=== PATIENT | female | born 1965 | race Caucasian/White ===

== ENCOUNTER 2017-07-06 15:18 | Observation (INO) ==
[2017-07-06] MEDS ORDERED: 0.9 % Sodium Chloride 1,000 ML IVC ONE (15:37)
[2017-07-06 16:05] LABS: VBG PH 7.43 pH Units (7.32-7.42)
[2017-07-06 16:05] LABS: Basophils % 0.6 %; Hemoglobin 13.8 g/dL (11.5-15.4); Immature Granulocytes % 0.2 % (0-4); Lymphocytes # 3.3 K/mcL (0.6-4.6); Lymphocytes % 50.1 %; Mean Corpuscular HGB Conc 33.7 g/dL (31.6-35.5); Mean Corpuscular Hemoglobin 29.4 pg (28.0-33.3); Mean Corpuscular Volume 87.4 fL (83.0-100.0); Monocytes # 0.7 K/mcL (0.0-1.3); Neutrophils # 2.6 K/mcL (1.6-8.9); Platelet Count 222 K/mcL (140-400); Red Blood Count 4.69 M/mcL (3.82-4.97); Red Cell Distribution Width 12.9 % (11.5-14.5); Segmented Neutrophils % 39.1 %
[2017-07-06 16:20] LABS: BUN/Creatinine Ratio 12 (6-26); Blood Urea Nitrogen 8 mg/dL (7-20); Calcium 10.7 mg/dL (8.6-10.8); Carbon Dioxide 31 mEq/L (19-29); Chloride 105 mEq/L (98-109); Creatine Kinase 31 Units/L (29-168); Glucose 87 mg/dL (70-99); Osmolality,Calculated 286 (280-300); Potassium 4.2 mEq/L (3.5-4.5); Sodium 139 mEq/L (136-145); eGFR For African Americans > 60 (> 60); eGFR For Non-African Americans > 60 (> 60)
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
[2017-07-06 17:15] LABS: Bilirubin,Urine Negative (Negative); Blood,Urine Negative (Negative); Clarity,Urine Clear (Clear); Color,Urine Dark Yellow (Yellow); Glucose,Urine (UA) Normal (Normal); Ketones,Urine Negative (Negative); Leukocyte Esterase,Urine Negative (Negative); Nitrite,Urine Negative (Negative); Protein,Urine Negative (Neg-Trace); Specific Gravity,Urine 1.018 (1.010-1.025); Urobilinogen,Urine Normal (Normal)
[2017-07-06 18:04] LABS: Amphetamine Screen,Urine Negative ng/mL (Cutoff=1000); Barbiturate Screen,Urine Negative ng/mL (Cutoff=200); Benzodiazepines Screen,Urine Positive ng/mL (Cutoff=200); Cannabinoid Screen,Urine Negative ng/mL (Cutoff = 50); Cocaine Screen,Urine Negative ng/mL (Cutoff= 300); Opiate Screen,Urine Negative ng/mL (Cutoff=300); Phencyclidine Screen,Urine Negative ng/mL (Cutoff=25)
[2017-07-06 20:57] VITALS: BP 115/68
[2017-07-06] MEDS ORDERED: Naloxone 0.4 MG/ML INJ IVP PRN (22:02)
--- NOTE | 2017-07-06 22:02 | Internal Med History&Physical ---
Date of Encounter: 07/06/17 Time of Encounter: 22:01 Assessment and Plan (1) Benzodiazepine abuse Current visit: Yes Status: Acute Encourage cessation (2) Tobacco abuse Current visit: Yes Status: Chronic encourage cessation (3) Opiate dependence Current visit: Yes Status: Chronic Continue own dose of suboxone Qualifiers: Substance use status: uncomplicated Qualified Code(s): F11.20 - Opioid dependence, uncomplicated Internal Medicine - H&P: HPI Chief complaint: I was sleeping in my car Admitted From: Home Plans for Post Hospital Care: Home History of present illness: Ms. Guerrero is a 52 year old female with unknown medical history She is seen and evaluated at bedside she was BIBEMS for being found asleep and unresponsive in her car. Patient denies this stating she was asleep only. She denies any other complains She is ambulatory, alert and awake oriented She has PMH of depression She denies suicidal or homicidal ideation She denies substance abuse but is on sub-oxone, she also reports she hasnt had a script filled for benzodiazepine in over a year but is obtaining it from the streets/friends Past Med Surg Social Fam HX - Past Medical History Medical history: other Psychiatric history: no psych history - Social History Smoking Status: Current every day smoker Smokeless Tobacco Status: No Alcohol use: none Drug use: prescription drug abuse Internal Medicine - H&P: Meds Buprenorphine HCl/Naloxone HCl [Buprenorphin-Naloxon 8-2 mg Sl] 2 each SL DAILY 07/06/17 [History] FLUoxetine HCl [Prozac] 20 mg PO DAILY 07/06/17 [History] 3 Allergy/AdvReac Type Severity Reaction Status Date / Time codeine Allergy Itching Verified 07/06/17 15:27 All Systems PM: A 10-system review of systems was performed and is negative for pertinent findings except as documented above in the HPI. - Constitutional Constitutional: no chills, no fever(s), no night sweats - EENT Eyes: no change in vision, no discharge, no pain, no photophobia Ears: no ear discharge, no ear pain, no tinnitus Nose, mouth and throat: no dysphagia, no nasal discharge, no neck pain, no sore throat - Cardiovascular Cardiovascular ROS IM: no chest pain, no diaphoresis, no dyspnea, no lightheadedness, no palpitations, no syncope - Respiratory Respiratory: no cough, no dyspnea, no wheezing, no excessive phlegm production - Gastrointestinal Gastrointestinal: no abdominal pain, no diarrhea, no hematemesis, no hematochezia, no melena, no nausea, no vomiting - Genitourinary Genitourinary: no change in urinary stream, no dysuria, no flank pain, no hematuria - Musculoskeletal Musculoskeletal ROS IM: no numbness, no tingling - Integumentary Integumentary IM: no rash, no unusual bruising - Neurological Neurological ROS: no confusion, no convulsions, no focal weakness, no numbness, no tingling, no tremor(s) - Hematologic/Lymphatic Hematologic/Lymphatic: no easy bruising - Constitutional Vitals: Temp Pulse Resp BP Pulse Ox 98.2 F 59 14 115/68 95 07/06/17 20:56 07/06/17 20:56 07/06/17 20:56 07/06/17 20:56 07/06/17 20:56 General appearance: Present: A&O X 3, pleasant - Head Head exam: Present: atraumatic, normocephalic - Eye Eye exam: Present: PERRL, conjuntiva pink, sclera anicteric Pupils: Present: PERRL - Neck Neck exam general surgery: Present: supple, trachea midline. Absent: lymphadenopathy - Respiratory Respiratory exam: Present: CTAB. Absent: accessory muscle use, rales, rhonchi, wheezes - Cardiovascular Cardiovascular exam: Present: RRR, +S1, +S2. Absent: diastolic murmur, gallop, rubs, systolic murmur - GI/Abdominal GI/Abdominal exam: Present: normal bowel sounds, soft, no peritoneal signs. Absent: distended, tenderness - Extremities Exam Extremities exam: Present: warm, radial pulses palpable and symmetrical. Absent : calf tenderness, cyanotic, pedal edema - Neurological Exam Neurological exam: Present: alert, CN II-XII intact, oriented X3, no focal deficits. Absent: pronater drift, facial droop, speech deficit - Skin Skin exam: Present: dry, intact Internal Med - H&P Results - Labs CBC & Chem 7: 07/06/17 15:50 07/06/17 15:50
--- NOTE | 2017-07-08 06:19 | Discharge Summary ---
Date of Encounter: 07/06/17 Time of Encounter: 22:30 - Discharge Diagnosis (1) Benzodiazepine abuse Priority: Primary Status: Acute (2) Tobacco abuse Priority: Secondary Status: Chronic (3) Opiate dependence Priority: Secondary Status: Chronic Qualifiers: Substance use status: uncomplicated Qualified Code(s): F11.20 - Opioid dependence, uncomplicated - Discharge Medications Home Medications: Buprenorphine HCl/Naloxone HCl [Buprenorphin-Naloxon 8-2 mg Sl] 2 each SL DAILY 07/06/17 [History] FLUoxetine HCl [Prozac] 20 mg PO DAILY 07/06/17 [History] Allergies/Adverse Reactions: 3 Allergy/AdvReac Type Severity Reaction Status Date / Time codeine Allergy Itching Verified 07/06/17 15:27 Date of admission: 07/06/17 19:50 Primary care physician: PCP NONE Discharging clinician: Dorian Garcia Anticipated date of discharge: 07/06/17 - Patient Status Disposition: Left Against Medical Advice Condition: Good - Discharge Instructions Follow Up With: NONE,PCP [Primary Care Provider] - Interval History: See same day H and P Hospital course: Ms. Guerrero is a 52 year old female - Time Spent with Patient Total time spent providing and/or coordinating discharge services: - Constitutional Vitals: Temp Pulse Resp BP Pulse Ox 98.2 F 59 14 115/68 95 07/06/17 20:56 07/06/17 20:56 07/06/17 20:56 07/06/17 20:56 07/06/17 20:56 General appearance: Present: A&O X 3, pleasant
== END 2017-07-06 23:24 | disposition left against medical advice (07) ==
LOC: EMEROO 15:18 → 3BNU 15:18
PROVIDERS: ADMIT Internal Medicine; ATTEND Registered Nurse

== ENCOUNTER 2018-04-06 16:43 | Inpatient (IN) ==
[2018-04-06 17:02] LABS: Basophils # 0.1 K/mcL (0.0-0.2); Basophils % 0.8 %; Hematocrit 44.4 % (35.3-44.9); Hemoglobin 15.6 g/dL (11.5-15.4); Immature Granulocytes % 0.2 % (0-4); Lymphocytes # 4.3 K/mcL (0.6-4.6); Lymphocytes % 45.7 %; Mean Corpuscular HGB Conc 35.1 g/dL (31.6-35.5); Mean Corpuscular Hemoglobin 31.8 pg (28.0-33.3); Mean Corpuscular Volume 90.6 fL (83.0-100.0); Mean Platelet Volume 10.7 fL (9.4-12.4); Monocytes # 0.9 K/mcL (0.0-1.3); Monocytes % 9.2 %; Neutrophils # 4.2 K/mcL (1.6-8.9); Platelet Count 261 K/mcL (140-400); Red Cell Distribution Width 13.1 % (11.5-14.5); Segmented Neutrophils % 44.1 %
--- NOTE | 2018-04-06 17:04 | Emergency Department Note ---
Disposition Clinical Impression: Suicidal ideation Disposition: Still a Patient Referrals: NONE,PCP [Primary Care Provider] - Forms: ED Satisfaction Letter General Adult HPI - General Chief complaint: ED Psychiatric Symptoms Stated complaint: wants to suicide herself Time Seen by Provider: 04/06/18 16:51 Source: patient, EMS Limitations: no limitations - History of Present Illness Pain Scale: 0 - Related Data Home Medications Medication Instructions Recorded Confirmed Buprenorphine HCl/Naloxone HCl 2 each SL DAILY 07/06/17 07/06/17 [Buprenorphin-Naloxon 8-2 mg Sl] FLUoxetine HCl [Prozac] 20 mg PO DAILY 07/06/17 07/06/17 Previous Rx's Medication Instructions Recorded Ondansetron ODT [Zofran ODT] 4 mg SL Q4HR #12 tab.rapdis 09/05/17 Allergies Allergy/AdvReac Type Severity Reaction Status Date / Time codeine Allergy Itching Verified 07/06/17 15:27 Past Medical History - Past Medical History Medical history: Reports: no medical history Psychiatric history: Reports: anxiety 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 - Social History Smoking Status: Current every day smoker Smokeless Tobacco Status: No Alcohol use: Reports: none Drug use: Reports: prescription drug abuse Physical Exam - General Limitations: no limitations General appearance: alert, in no apparent distress, appears intoxicated Course Vital Signs Temperature 97.9 F 04/06/18 16:44 Pulse Rate 96 04/06/18 16:44 Respiratory Rate 16 04/06/18 16:44 Blood Pressure 135/78 04/06/18 16:44 O2 Sat by Pulse Oximetry 95 04/06/18 16:44 Temperature 97.9 F 04/06/18 16:44 Pulse Rate 88 04/06/18 20:38 Respiratory Rate 16 04/06/18 20:38 Blood Pressure 132/74 04/06/18 20:38 O2 Sat by Pulse Oximetry 96 04/06/18 20:38 Oxygen Delivery Oxygen Delivery Room Air Medical Decision Making - Lab Data Result diagrams: 04/06/18 16:57 04/06/18 16:57 Lab Results 04/06/18 04/06/18 04/06/18 Range/Units 16:57 16:57 18:41 WBC 9.5 (4.3-11.1) K/mcL RBC 4.90 (3.82-4.97) M/mcL Hgb 15.6 H (11.5-15.4) g/dL Hct 44.4 (35.3-44.9) % MCV 90.6 (83.0-100.0) fL MCH 31.8 (28.0-33.3) pg MCHC 35.1 (31.6-35.5) g/dL RDW 13.1 (11.5-14.5) % Plt Count 261 (140-400) K/mcL MPV 10.7 (9.4-12.4) fL Immature Gran % 0.2 (0-4) % Seg Neutrophils % 44.1 % Lymphocytes % 45.7 % Monocytes % 9.2 % Eosinophils % 0.0 % Basophils % 0.8 % Neutrophils # 4.2 (1.6-8.9) K/mcL Lymphocytes # 4.3 (0.6-4.6) K/mcL Monocytes # 0.9 (0.0-1.3) K/mcL Eosinophils # 0.0 (0.0-0.6) K/mcL Basophils # 0.1 (0.0-0.2) K/mcL Sodium 140 (136-145) mEq/L Potassium 4.0 (3.5-5.1) mEq/L Chloride 106 (98-107) mEq/L Carbon Dioxide 29 (23-29) mEq/L BUN 12 (6-20) mg/dL Creatinine 0.57 L (0.60-1.20) mg/dL Est GFR ( Amer) > 60 (> 60) Est GFR (Non-Af Amer) > 60 (> 60) BUN/Creatinine Ratio 21 (6-26) Glucose 89 (70-105) mg/dL Calculated Osmolality 289 (280-300) Calcium 10.8 H (8.6-10.3) mg/dL Urine Color Yellow (Yellow) Urine Clarity Clear (Clear) Urine pH 7.0 (5.0-8.0) pH Units Ur Specific [place] 1.015 (1.010-1.025) Urine Protein Negative (Neg-Trace) mg/dL Urine Glucose (UA) Normal (Normal) mg/dL Urine Ketones Negative (Negative) mg/dL Urine Blood Negative (Negative) Urine Nitrite Negative (Negative) Urine Bilirubin Negative (Negative) Urine Urobilinogen Normal (Normal) mg/dL Ur Leukocyte Esterase Negative (Negative) Urine Test (Negative) Salicylates < 2.5 L (15.0-30.0) mg/dL Urine Opiates Screen (Hasmzp=082) ng/mL Acetaminophen < 10 L (10-20) mcg/mL Ur Barbiturates Screen (Shobme=598) ng/mL Ur Phencyclidine Scrn (Cutoff=25) ng/mL Ur Amphetamines Screen (Rlqori=6735) ng/mL U Benzodiazepines Scrn (Eturah=756) ng/mL Urine Cocaine Screen (Cutoff= 300) ng/mL U Marijuana (THC) Screen (Cutoff = 50) ng/mL Ethyl Alcohol < 10 (Less than 10) mg/dL 04/06/18 04/06/18 Range/Units 18:41 18:41 WBC (4.3-11.1) K/mcL RBC (3.82-4.97) M/mcL Hgb (11.5-15.4) g/dL Hct (35.3-44.9) % MCV (83.0-100.0) fL MCH (28.0-33.3) pg MCHC (31.6-35.5) g/dL RDW (11.5-14.5) % Plt Count (140-400) K/mcL MPV (9.4-12.4) fL Immature Gran % (0-4) % Seg Neutrophils % % Lymphocytes % % Monocytes % % Eosinophils % % Basophils % % Neutrophils # (1.6-8.9) K/mcL Lymphocytes # (0.6-4.6) K/mcL Monocytes # (0.0-1.3) K/mcL Eosinophils # (0.0-0.6) K/mcL Basophils # (0.0-0.2) K/mcL Sodium (136-145) mEq/L Potassium (3.5-5.1) mEq/L Chloride (98-107) mEq/L Carbon Dioxide (23-29) mEq/L BUN (6-20) mg/dL Creatinine (0.60-1.20) mg/dL Est GFR ( Amer) (> 60) Est GFR (Non-Af Amer) (> 60) BUN/Creatinine Ratio (6-26) Glucose (70-105) mg/dL Calculated Osmolality (280-300) Calcium (8.6-10.3) mg/dL Urine Color (Yellow) Urine Clarity (Clear) Urine pH (5.0-8.0) pH Units Ur Specific [place] (1.010-1.025) Urine Protein (Neg-Trace) mg/dL Urine Glucose (UA) (Normal) mg/dL Urine Ketones (Negative) mg/dL Urine Blood (Negative) Urine Nitrite (Negative) Urine Bilirubin (Negative) Urine Urobilinogen (Normal) mg/dL Ur Leukocyte Esterase (Negative) Urine Test Negative (Negative) Salicylates (15.0-30.0) mg/dL Urine Opiates Screen Negative (Ryeytj=246) ng/mL Acetaminophen (10-20) mcg/mL Ur Barbiturates Screen Negative (Jbuxeo=080) ng/mL Ur Phencyclidine Scrn Negative (Cutoff=25) ng/mL Ur Amphetamines Screen Negative (Aqfhtp=4682) ng/mL U Benzodiazepines Scrn Positive H (Nteobg=673) ng/mL Urine Cocaine Screen Negative (Cutoff= 300) ng/mL U Marijuana (THC) Screen Positive H (Cutoff = 50) ng/mL Ethyl Alcohol (Less than 10) mg/dL Attestation Statement - Attestation Attestation: I examined this patient and my medical decision-making was reviewed with the Resident Physician. I agree with the documented findings, disposition and treatment plan as described except to the extent set forth below. Patient presents to the ED with suicidal threats. Patient was pulled over by police for driving on a suspended license. She made suicidal threats. On exam she is anxious and screaming. Heart regular and tachycardia. Lungs clear abdomen soft. No signs of injury. Plan. Patient had be given Ativan. She is now resting comfortably. Medical clearance and evaluation by 1A. Patient saw awaiting psychiatric consult. Will be signed out to shift commander.
[2018-04-06] MEDS ORDERED: *HR* LORazepam 2 MG/ML VIAL IM ONE (17:15)
[2018-04-06 17:25] LABS: Acetaminophen < 10 mcg/mL (10-20); BUN/Creatinine Ratio 21 (6-26); Blood Urea Nitrogen 12 mg/dL (6-20); Calcium 10.8 mg/dL (8.6-10.3); Carbon Dioxide 29 mEq/L (23-29); Chloride 106 mEq/L (98-107); Ethanol < 10 mg/dL (Less than 10); Glucose 89 mg/dL (70-105); Osmolality,Calculated 289 (280-300); Salicylate < 2.5 mg/dL (15.0-30.0); Sodium 140 mEq/L (136-145); eGFR For African Americans > 60 (> 60); eGFR For Non-African Americans > 60 (> 60)
[2018-04-06 18:46] LABS: Bilirubin,Urine Negative (Negative); Blood,Urine Negative (Negative); Clarity,Urine Clear (Clear); Color,Urine Yellow (Yellow); Glucose,Urine (UA) Normal (Normal); Ketones,Urine Negative (Negative); Leukocyte Esterase,Urine Negative (Negative); Nitrite,Urine Negative (Negative); Protein,Urine Negative (Neg-Trace); Specific Gravity,Urine 1.015 (1.010-1.025); Urobilinogen,Urine Normal (Normal)
[2018-04-06 19:04] LABS: Amphetamine Screen,Urine Negative ng/mL (Cutoff=1000); Barbiturate Screen,Urine Negative ng/mL (Cutoff=200); Benzodiazepines Screen,Urine Positive ng/mL (Cutoff=200); Cannabinoid Screen,Urine Positive ng/mL (Cutoff = 50); Cocaine Screen,Urine Negative ng/mL (Cutoff= 300); Opiate Screen,Urine Negative ng/mL (Cutoff=300); Phencyclidine Screen,Urine Negative ng/mL (Cutoff=25)
--- NOTE | 2018-04-06 21:16 | Emergency Department Note ---
Disposition Clinical Impression: Suicidal ideation Disposition: Still a Patient Condition: Fair Referrals: NONE,PCP [Primary Care Provider] - Forms: ED Satisfaction Letter Time of Disposition: 22:38 General Adult HPI - General Chief complaint: ED Psychiatric Symptoms Stated complaint: wants to suicide herself Time Seen by Provider: 04/06/18 16:51 Source: patient, EMS Mode of arrival: EMS Limitations: no limitations Nursing Notes Reviewed: Yes Vital Signs Reviewed: Yes - History of Present Illness HPI Narrative: Patient is a 53-year-old female presenting by squad for concerns for suicidal ideation. 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 So she is brought in for psychiatric evaluation. On exam the patient does state that she no longer wants to live, she states that she is feeling this way because of issues that she is having with her who is no longer letting her live in her home and she also states that she has a family member that recently . She denies any homicidal ideation. Denies suicidal attempt. She states that she does not have a plan. Pain Scale: 0 - Related Data Home Medications Medication Instructions Recorded Confirmed Buprenorphine HCl/Naloxone HCl 2 each SL DAILY 07/06/17 07/06/17 [Buprenorphin-Naloxon 8-2 mg Sl] FLUoxetine HCl [Prozac] 20 mg PO DAILY 07/06/17 07/06/17 Previous Rx's Medication Instructions Recorded Ondansetron ODT [Zofran ODT] 4 mg SL Q4HR #12 tab.rapdis 09/05/17 Allergies Allergy/AdvReac Type Severity Reaction Status Date / Time codeine Allergy Itching Verified 07/06/17 15:27 All systems ED: reviewed and negative except as stated. Review of Systems: As Per HPI Constitutional: Denies: fever, chills Cardiovascular: Denies: chest pain Respiratory: Denies: cough Gastrointestinal: Denies: abdominal pain, nausea, vomiting Musculoskeletal: Denies: back pain, neck pain Neurological: Denies: headache, numbness, paresthesias, confusion Psychiatric: Reports: anxiety, depression, suicidal thoughts. Denies: homicidal thoughts, auditory hallucinations, visual hallucinations Past Medical History - Past Medical History Attestation: Yes The following information was validated with the patient. 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 HEAD: Normocephalic; atraumatic. EYES: PERRL, no scleral icterus. NOSE: The nose is normal in appearance without rhinorrhea RESP: Normal chest excursion with respiration; breath sounds clear and equal bilaterally; no wheezes, rhonchi, or rales CARD: Regular rhythm, without murmurs, rub or gallop ABD: Non-distended; non-tender, soft,without rigidity, rebound or guarding SKIN: Normal for age and race; warm and dry; no apparent lesions PSYCH: Very anxious, tearful, admits to wanting her life and, denies wanting to harm other people. - General Limitations: no limitations General appearance: alert, in no apparent distress, appears intoxicated Course Course Narrative: Patient presents for evaluation for suicidal thoughts, anxiety, and depression. She has multiple stressors going on in her life at this time that are contributing to this. Patient was pink slipped upon arrival. Plan is to medically clear the patient and she will be seen by the 1A team. The patient did have increasing anxiety and became loud and disruptive when the communication center operator were interviewing her. I was able to calm her through discussion, she also received 1 mg of Ativan. - Reevaluation(s) Reevaluation #1: Patient continues to be somnolent after receiving Ativan. She still waiting for 1A consultation. She will be signed out to the night team. Vital Signs Temperature 97.9 F 04/06/18 16:44 Pulse Rate 96 04/06/18 16:44 Respiratory Rate 16 04/06/18 16:44 Blood Pressure 135/78 04/06/18 16:44 O2 Sat by Pulse Oximetry 95 04/06/18 16:44 Temperature 97.9 F 04/06/18 16:44 Pulse Rate 88 04/06/18 20:38 Respiratory Rate 16 04/06/18 20:38 Blood Pressure 132/74 04/06/18 20:38 O2 Sat by Pulse Oximetry 96 04/06/18 20:38 Oxygen Delivery Oxygen Delivery Room Air Medical Decision Making - Medical Records Medical records reviewed: Yes I reviewed the patient's medical records. - Lab Data Lab results reviewed: Yes I reviewed the patient's lab results. Result diagrams: 04/06/18 16:57 04/06/18 16:57 Lab Results 04/06/18 04/06/18 04/06/18 Range/Units 16:57 16:57 18:41 WBC 9.5 (4.3-11.1) K/mcL RBC 4.90 (3.82-4.97) M/mcL Hgb 15.6 H (11.5-15.4) g/dL Hct 44.4 (35.3-44.9) % MCV 90.6 (83.0-100.0) fL MCH 31.8 (28.0-33.3) pg MCHC 35.1 (31.6-35.5) g/dL RDW 13.1 (11.5-14.5) % Plt Count 261 (140-400) K/mcL MPV 10.7 (9.4-12.4) fL Immature Gran % 0.2 (0-4) % Seg Neutrophils % 44.1 % Lymphocytes % 45.7 % Monocytes % 9.2 % Eosinophils % 0.0 % Basophils % 0.8 % Neutrophils # 4.2 (1.6-8.9) K/mcL Lymphocytes # 4.3 (0.6-4.6) K/mcL Monocytes # 0.9 (0.0-1.3) K/mcL Eosinophils # 0.0 (0.0-0.6) K/mcL Basophils # 0.1 (0.0-0.2) K/mcL Sodium 140 (136-145) mEq/L Potassium 4.0 (3.5-5.1) mEq/L Chloride 106 (98-107) mEq/L Carbon Dioxide 29 (23-29) mEq/L BUN 12 (6-20) mg/dL Creatinine 0.57 L (0.60-1.20) mg/dL Est GFR ( Amer) > 60 (> 60) Est GFR (Non-Af Amer) > 60 (> 60) BUN/Creatinine Ratio 21 (6-26) Glucose 89 (70-105) mg/dL Calculated Osmolality 289 (280-300) Calcium 10.8 H (8.6-10.3) mg/dL Urine Color Yellow (Yellow) Urine Clarity Clear (Clear) Urine pH 7.0 (5.0-8.0) pH Units Ur Specific [place] 1.015 (1.010-1.025) Urine Protein Negative (Neg-Trace) mg/dL Urine Glucose (UA) Normal (Normal) mg/dL Urine Ketones Negative (Negative) mg/dL Urine Blood Negative (Negative) Urine Nitrite Negative (Negative) Urine Bilirubin Negative (Negative) Urine Urobilinogen Normal (Normal) mg/dL Ur Leukocyte Esterase Negative (Negative) Urine Test (Negative) Salicylates < 2.5 L (15.0-30.0) mg/dL Urine Opiates Screen (Cmsulw=136) ng/mL Acetaminophen < 10 L (10-20) mcg/mL Ur Barbiturates Screen (Yagacr=986) ng/mL Ur Phencyclidine Scrn (Cutoff=25) ng/mL Ur Amphetamines Screen (Uqptzz=9397) ng/mL U Benzodiazepines Scrn (Gezmcz=209) ng/mL Urine Cocaine Screen (Cutoff= 300) ng/mL U Marijuana (THC) Screen (Cutoff = 50) ng/mL Ethyl Alcohol < 10 (Less than 10) mg/dL 04/06/18 04/06/18 Range/Units 18:41 18:41 WBC (4.3-11.1) K/mcL RBC (3.82-4.97) M/mcL Hgb (11.5-15.4) g/dL Hct (35.3-44.9) % MCV (83.0-100.0) fL MCH (28.0-33.3) pg MCHC (31.6-35.5) g/dL RDW (11.5-14.5) % Plt Count (140-400) K/mcL MPV (9.4-12.4) fL Immature Gran % (0-4) % Seg Neutrophils % % Lymphocytes % % Monocytes % % Eosinophils % % Basophils % % Neutrophils # (1.6-8.9) K/mcL Lymphocytes # (0.6-4.6) K/mcL Monocytes # (0.0-1.3) K/mcL Eosinophils # (0.0-0.6) K/mcL Basophils # (0.0-0.2) K/mcL Sodium (136-145) mEq/L Potassium (3.5-5.1) mEq/L Chloride (98-107) mEq/L Carbon Dioxide (23-29) mEq/L BUN (6-20) mg/dL Creatinine (0.60-1.20) mg/dL Est GFR ( Amer) (> 60) Est GFR (Non-Af Amer) (> 60) BUN/Creatinine Ratio (6-26) Glucose (70-105) mg/dL Calculated Osmolality (280-300) Calcium (8.6-10.3) mg/dL Urine Color (Yellow) Urine Clarity (Clear) Urine pH (5.0-8.0) pH Units Ur Specific [place] (1.010-1.025) Urine Protein (Neg-Trace) mg/dL Urine Glucose (UA) (Normal) mg/dL Urine Ketones (Negative) mg/dL Urine Blood (Negative) Urine Nitrite (Negative) Urine Bilirubin (Negative) Urine Urobilinogen (Normal) mg/dL Ur Leukocyte Esterase (Negative) Urine Test Negative (Negative) Salicylates (15.0-30.0) mg/dL Urine Opiates Screen Negative (Arblzj=931) ng/mL Acetaminophen (10-20) mcg/mL Ur Barbiturates Screen Negative (Wfksix=383) ng/mL Ur Phencyclidine Scrn Negative (Cutoff=25) ng/mL Ur Amphetamines Screen Negative (Vyqkgo=5515) ng/mL U Benzodiazepines Scrn Positive H (Jawajf=105) ng/mL Urine Cocaine Screen Negative (Cutoff= 300) ng/mL U Marijuana (THC) Screen Positive H (Cutoff = 50) ng/mL Ethyl Alcohol (Less than 10) mg/dL - Radiology Data Radiology results reviewed: Yes I reviewed the patient's radiology results. Chest X-Ray 04/06/18 16:52 IMPRESSION: No acute cardiopulmonary disease. D/ / Jordy Castillo MD / Jordy Castillo MD Interpreting Provider: Jordy Castillo MD S.B.A.R. - S.B.A.R. Situation: Demographics, MOA Background: Presenting Complaint, Relevant PMH, Meds, & Allergies Assessment: Vital Signs, Course and respsone to treatment, Exam Concerns, Patient/Family Expectation, Pertinant Lab Results, Outstanding Labs Recommendation: Barrier(s) to disposition, Recommendation based on pending studies, treatments, or consults S.B.A.R. Report Given to: Dr. Strong and Dr. Wong S.B.A.Pastor Repor Time: 22:38
[2018-04-07] MEDS ORDERED: Acetaminophen 325 MG TABLET PO ONE (00:15)
[2018-04-07] MEDS ORDERED: MOM Conc 10 ML UD.LIQ PO PRN (01:20)
[2018-04-07] MEDS ORDERED: traZODone 50 MG TABLET PO PRN (01:20)
[2018-04-07] MEDS ORDERED: *HR* LORazepam 1 MG TABLET PO PRN (01:20)
[2018-04-07] MEDS ORDERED: *HR* LORazepam 2 MG/ML VIAL IM PRN (01:20)
[2018-04-07] MEDS ORDERED: Mag Hydrox/Al Hydrox/Simeth 30 ML UDC PO PRN (01:20)
[2018-04-07] MEDS ORDERED: Haloperidol Lactate 5 MG/ML VIAL IM PRN (01:20)
--- NOTE | 2018-04-07 01:37 | Emergency Department Note ---
Disposition Clinical Impression: Suicidal ideation Disposition: Admitted As Inpatient Condition: Fair Referrals: NONE,PCP [Primary Care Provider] - Forms: ED Satisfaction Letter Time of Disposition: 01:38 General Adult HPI - General Chief complaint: ED Psychiatric Symptoms Stated complaint: wants to suicide herself Time Seen by Provider: 04/06/18 16:51 Source: patient, EMS Mode of arrival: EMS Limitations: no limitations - History of Present Illness Pain Scale: 0 - Related Data Home Medications Medication Instructions Recorded Confirmed Buprenorphine HCl/Naloxone HCl 2 each SL DAILY 07/06/17 07/06/17 [Buprenorphin-Naloxon 8-2 mg Sl] FLUoxetine HCl [Prozac] 20 mg PO DAILY 07/06/17 07/06/17 Previous Rx's Medication Instructions Recorded Ondansetron ODT [Zofran ODT] 4 mg SL Q4HR #12 tab.rapdis 09/05/17 Allergies Allergy/AdvReac Type Severity Reaction Status Date / Time codeine Allergy Itching Verified 07/06/17 15:27 Constitutional: Denies: fever, chills Cardiovascular: Denies: chest pain Respiratory: Denies: cough Gastrointestinal: Denies: abdominal pain, nausea, vomiting Musculoskeletal: Denies: back pain, neck pain Neurological: Denies: headache, numbness, paresthesias, confusion Psychiatric: Reports: anxiety, depression, suicidal thoughts. 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 Hodge and Dr. daigle. Please refer to their notes for complete details of the history and physical examination. At shift change the patient has been medically cleared and is awaiting psychiatric evaluation. Patient was seen and evaluated in the emergency department by the [address] psychiatry department and is being admitted to the [address] psychiatric unit. Vital Signs Temperature 97.9 F 04/06/18 16:44 Pulse Rate 96 04/06/18 16:44 Respiratory Rate 16 06/22/18 16:44 Blood Pressure 135/78 06/22/18 16:44 O2 Sat by Pulse Oximetry 95 04/06/18 16:44 Temperature 97.9 F 04/06/18 16:44 Pulse Rate 88 04/06/18 20:38 Respiratory Rate 16 04/06/18 20:38 Blood Pressure 132/74 04/06/18 20:38 O2 Sat by Pulse Oximetry 96 04/06/18 20:38 Oxygen Delivery Oxygen Delivery Room Air Medical Decision Making - Lab Data Result diagrams: 04/06/18 16:57 04/06/18 16:57 Lab Results 04/06/18 04/06/18 04/06/18 Range/Units 16:57 16:57 18:41 WBC 9.5 (4.3-11.1) K/mcL RBC 4.90 (3.82-4.97) M/mcL Hgb 15.6 H (11.5-15.4) g/dL Hct 44.4 (35.3-44.9) % MCV 90.6 (83.0-100.0) fL MCH 31.8 (28.0-33.3) pg MCHC 35.1 (31.6-35.5) g/dL RDW 13.1 (11.5-14.5) % Plt Count 261 (140-400) K/mcL MPV 10.7 (9.4-12.4) fL Immature Gran % 0.2 (0-4) % Seg Neutrophils % 44.1 % Lymphocytes % 45.7 % Monocytes % 9.2 % Eosinophils % 0.0 % Basophils % 0.8 % Neutrophils # 4.2 (1.6-8.9) K/mcL Lymphocytes # 4.3 (0.6-4.6) K/mcL Monocytes # 0.9 (0.0-1.3) K/mcL Eosinophils # 0.0 (0.0-0.6) K/mcL Basophils # 0.1 (0.0-0.2) K/mcL Sodium 140 (136-145) mEq/L Potassium 4.0 (3.5-5.1) mEq/L Chloride 106 (98-107) mEq/L Carbon Dioxide 29 (23-29) mEq/L BUN 12 (6-20) mg/dL Creatinine 0.57 L (0.60-1.20) mg/dL Est GFR ( Amer) > 60 (> 60) Est GFR (Non-Af Amer) > 60 (> 60) BUN/Creatinine Ratio 21 (6-26) Glucose 89 (70-105) mg/dL Calculated Osmolality 289 (280-300) Calcium 10.8 H (8.6-10.3) mg/dL Urine Color Yellow (Yellow) Urine Clarity Clear (Clear) Urine pH 7.0 (5.0-8.0) pH Units Ur Specific [place] 1.015 (1.010-1.025) Urine Protein Negative (Neg-Trace) mg/dL Urine Glucose (UA) Normal (Normal) mg/dL Urine Ketones Negative (Negative) mg/dL Urine Blood Negative (Negative) Urine Nitrite Negative (Negative) Urine Bilirubin Negative (Negative) Urine Urobilinogen Normal (Normal) mg/dL Ur Leukocyte Esterase Negative (Negative) Urine Test (Negative) Salicylates < 2.5 L (15.0-30.0) mg/dL Urine Opiates Screen (Kjppyi=174) ng/mL Acetaminophen < 10 L (10-20) mcg/mL Ur Barbiturates Screen (Cvfffz=603) ng/mL Ur Phencyclidine Scrn (Cutoff=25) ng/mL Ur Amphetamines Screen (Avpsma=2407) ng/mL U Benzodiazepines Scrn (Pfrmce=814) ng/mL Urine Cocaine Screen (Cutoff= 300) ng/mL U Marijuana (THC) Screen (Cutoff = 50) ng/mL Ethyl Alcohol < 10 (Less than 10) mg/dL 04/06/18 04/06/18 Range/Units 18:41 18:41 WBC (4.3-11.1) K/mcL RBC (3.82-4.97) M/mcL Hgb (11.5-15.4) g/dL Hct (35.3-44.9) % MCV (83.0-100.0) fL MCH (28.0-33.3) pg MCHC (31.6-35.5) g/dL RDW (11.5-14.5) % Plt Count (140-400) K/mcL MPV (9.4-12.4) fL Immature Gran % (0-4) % Seg Neutrophils % % Lymphocytes % % Monocytes % % Eosinophils % % Basophils % % Neutrophils # (1.6-8.9) K/mcL Lymphocytes # (0.6-4.6) K/mcL Monocytes # (0.0-1.3) K/mcL Eosinophils # (0.0-0.6) K/mcL Basophils # (0.0-0.2) K/mcL Sodium (136-145) mEq/L Potassium (3.5-5.1) mEq/L Chloride (98-107) mEq/L Carbon Dioxide (23-29) mEq/L BUN (6-20) mg/dL Creatinine (0.60-1.20) mg/dL Est GFR ( Amer) (> 60) Est GFR (Non-Af Amer) (> 60) BUN/Creatinine Ratio (6-26) Glucose (70-105) mg/dL Calculated Osmolality (280-300) Calcium (8.6-10.3) mg/dL Urine Color (Yellow) Urine Clarity (Clear) Urine pH (5.0-8.0) pH Units Ur Specific [place] (1.010-1.025) Urine Protein (Neg-Trace) mg/dL Urine Glucose (UA) (Normal) mg/dL Urine Ketones (Negative) mg/dL Urine Blood (Negative) Urine Nitrite (Negative) Urine Bilirubin (Negative) Urine Urobilinogen (Normal) mg/dL Ur Leukocyte Esterase (Negative) Urine Test Negative (Negative) Salicylates (15.0-30.0) mg/dL Urine Opiates Screen Negative (Dawcbw=588) ng/mL Acetaminophen (10-20) mcg/mL Ur Barbiturates Screen Negative (Iphxei=677) ng/mL Ur Phencyclidine Scrn Negative (Cutoff=25) ng/mL Ur Amphetamines Screen Negative (Xjvket=8720) ng/mL U Benzodiazepines Scrn Positive H (Njzzlz=167) ng/mL Urine Cocaine Screen Negative (Cutoff= 300) ng/mL U Marijuana (THC) Screen Positive H (Cutoff = 50) ng/mL Ethyl Alcohol (Less than 10) mg/dL
[2018-04-07] MEDS: hydrOXYzine pamoate 25 MG CAPSULE PO PRN ×3 (02:28→15:15)
[2018-04-07] MEDS: Acetaminophen 325 MG TABLET PO PRN ×3 (02:28→17:15)
[2018-04-07] MEDS: Nicotine 21 MG PATCH.TD24 TD SCH (10:19)
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
[2018-04-07] MEDS: Baclofen 10 MG TABLET PO SCH ×2 (15:08→20:23)
[2018-04-08] MEDS: Acetaminophen 325 MG TABLET PO PRN (06:34)
[2018-04-08] MEDS: Baclofen 10 MG TABLET PO SCH ×3 (09:53→21:37)
[2018-04-08] MEDS: Nicotine 21 MG PATCH.TD24 TD SCH (09:53)
[2018-04-08] MEDS: hydrOXYzine pamoate 25 MG CAPSULE PO PRN (10:11)
--- NOTE | 2018-04-08 10:48 | Psychiatry Progress Note ---
Date of Encounter: 04/08/18 Time of Encounter: 10:00 Subjective Interval history: Patient seen today , case d/w staff , she is compliant with treatment plan. states she is having back pain and feels tyelenol not working good so will give ibubrufen states that might help. she is still dysphoric and withdrawn and feeling sad and anxious. she slept better at times woke up because of pain, states had not been eating well and under lot of stress. states i was going to go to my sister who said will let me stay and when she is better she will go to her sister. denies side effects and denies suicidal ideation at present but remains sad, depress and hopeless . she was started on cymbalta and hydroxyzine and still having anxiety. at present needs inpatient as hopeless, depress and not much support. Review of Systems Psychiatric: Reports: depression, anxiety, suicidal ideation, change in appetite , hopelessness, panic attacks Results - Vital Signs Vital Signs: Temp Pulse Resp BP Pulse Ox 98 F 77 16 120/82 96 04/08/18 09:00 04/08/18 09:00 04/08/18 09:00 04/08/18 09:00 04/06/18 20:38 Assessment and Plan (1) Major depressive disorder Current visit: Yes Status: Acute Risks, benefits, side effects, alternatives discussed w/pt: Yes Patient agreeable to treatment: Yes Qualifiers: Major depression recurrence: recurrent Active/Remission status: currently active Major depression episode severity: severe Psychotic features: without psychotic features Qualified Code(s): F33.2 - Major depressive disorder, recurrent severe without psychotic features (2) Generalized anxiety disorder Current visit: Yes Status: Acute Risks, benefits, side effects, alternatives discussed w/pt: Yes Patient agreeable to treatment: Yes Consult Discharge Plan - Plan Referrals: NONE,PCP [Primary Care Provider] - Psychiatry Exam - Constitutional Vitals: Temp Pulse Resp BP Pulse Ox 98 F 77 16 120/82 96 04/08/18 09:00 04/08/18 09:00 04/08/18 09:00 04/08/18 09:00 04/06/18 20:38 General appearance: unkempt, thin - Musculoskeletal Gait: slow Station: shaky Strength & Tone: normal for patient - Psychiatric Patient Orientation: Yes Person, Yes Time, Yes Place Level of alertness: Alert Behavior: cooperative, withdrawn Psychomotor activity: Slowed Eye Contact: Minimal Contact Mood Description: Depressed, Anxious Affect description: congruent with mood Speech pattern: coherent, slowed Language & Vocabulary: consistent with education Thought Process: Logical, Slowed Thinking Thought Content: Yes Intact, Yes Guilt Attention Span Ability: Capable of Focused Attention Memory Description: Grossly Intact Patient Reliability: Reliable Historian Fund of knowledge: Yes average Intelligence Estimate: Average Judgment: Limited Insight: Full
[2018-04-08] MEDS: hydrOXYzine pamoate 25 MG CAPSULE PO SCH ×2 (14:55→21:37)
[2018-04-08] MEDS: Ibuprofen 400 MG TABLET PO PRN ×2 (14:57→21:37)
[2018-04-09] MEDS: Ibuprofen 400 MG TABLET PO PRN ×2 (07:14→15:00)
[2018-04-09] MEDS: hydrOXYzine pamoate 25 MG CAPSULE PO SCH ×3 (08:36→21:01)
[2018-04-09] MEDS: Baclofen 10 MG TABLET PO SCH ×3 (08:36→20:59)
[2018-04-09] MEDS: Nicotine 21 MG PATCH.TD24 TD SCH (08:39)
--- NOTE | 2018-04-09 10:26 | Psychiatry Progress Note ---
Date of Encounter: 04/09/18 Time of Encounter: 10:00 Subjective Interval history: Patient seen today, case d/w treatment team and remains depressed., withdrawn and isolative. States anxiety is still there and educated her she has used bezo and marijuana and could be withdrwaing from them , she took klonopin from her brother. states slept like baby and did not wake up from pain . she wants me increase dose of ibubrofen as still hurting educated NSAID not good with antidepressant and can cause bleeding. she is still anxious but not suicidal today , she is showing slow improvement. denies side effects. Review of Systems Psychiatric: Reports: depression, anxiety, suicidal ideation, change in appetite , hopelessness, panic attacks Results - Vital Signs Vital Signs: Temp Pulse Resp BP Pulse Ox 97.7 F 67 16 123/83 96 04/09/18 08:44 04/09/18 08:44 04/09/18 08:44 04/09/18 08:44 04/06/18 20:38 Assessment and Plan (1) Major depressive disorder Current visit: Yes Status: Acute Additional Plan: will increase cymbalta to 60 mg and add acetaminophen for pain Risks, benefits, side effects, alternatives discussed w/pt: Yes Patient agreeable to treatment: Yes Qualifiers: Major depression recurrence: recurrent Active/Remission status: currently active Major depression episode severity: severe Psychotic features: without psychotic features Qualified Code(s): F33.2 - Major depressive disorder, recurrent severe without psychotic features (2) Generalized anxiety disorder Current visit: Yes Status: Acute Risks, benefits, side effects, alternatives discussed w/pt: Yes Patient agreeable to treatment: Yes Consult Discharge Plan - Plan Referrals: NONE,PCP [Primary Care Provider] - Psychiatry Exam - Constitutional Vitals: Temp Pulse Resp BP Pulse Ox 97.7 F 67 16 123/83 96 04/09/18 08:44 04/09/18 08:44 04/09/18 08:44 04/09/18 08:44 04/06/18 20:38 General appearance: unkempt, thin - Musculoskeletal Gait: normal Station: other Strength & Tone: normal for patient - Psychiatric Patient Orientation: Yes Person, Yes Time, Yes Place Level of alertness: Alert Behavior: cooperative, anxious Psychomotor activity: Slowed Eye Contact: Maintains Eye Contact Mood Description: Depressed, Anxious Affect description: congruent with mood Speech Volume: Soft/Quiet Speech pattern: slowed Language & Vocabulary: consistent with education Thought Process: Intact Thought Content: Yes Guilt Attention Span Ability: Capable of Focused Attention Memory Description: Grossly Intact Patient Reliability: Reliable Historian Fund of knowledge: Yes average Intelligence Estimate: Average Judgment: Limited Insight: Full
[2018-04-09] MEDS: Acetaminophen 325 MG TABLET PO PRN (11:26)
[2018-04-10] MEDS: Ibuprofen 400 MG TABLET PO PRN (06:04)
[2018-04-10] MEDS: Acetaminophen 325 MG TABLET PO PRN (09:04)
[2018-04-10] MEDS: Baclofen 10 MG TABLET PO SCH (09:05)
[2018-04-10] MEDS: hydrOXYzine pamoate 25 MG CAPSULE PO SCH (09:05)
[2018-04-10] MEDS: Nicotine 21 MG PATCH.TD24 TD SCH (09:06)
[2018-04-10 09:28] VITALS: BP 133/78
--- NOTE | 2018-04-10 10:42 | Discharge Summary ---
Date of Encounter: 04/10/18 Time of Encounter: 10:20 Diagnosis - Discharge Diagnosis (1) Major depressive disorder Status: Acute Comments: patient has shown improvement with treatment and structure enviornment and not suicidal or homicidal. Qualifiers: Major depression recurrence: recurrent Active/Remission status: currently active Major depression episode severity: severe Psychotic features: without psychotic features Qualified Code(s): F33.2 - Major depressive disorder, recurrent severe without psychotic features (2) Generalized anxiety disorder Status: Acute Comments: patient at baseline with medication. Medications - Discharge Medications Prescriptions: Baclofen [Lioresal] 10 mg PO TID 14 Days tablet DULoxetine [Cymbalta] 60 mg PO DAILY #30 capsule. hydrOXYzine pamoate [HydrOXYzine Pamoate] 25 mg PO TID #90 capsule traZODone [TraZODone] 50 mg PO HS PRN #14 tablet PRN Reason: Insomnia Baclofen [Lioresal] 10 mg PO TID 14 Days tablet 04/10/18 [Rx] DULoxetine [Cymbalta] 60 mg PO DAILY #30 capsule. 04/10/18 [Rx] hydrOXYzine pamoate [HydrOXYzine Pamoate] 25 mg PO TID #90 capsule 04/10/18 [Rx] traZODone [TraZODone] 50 mg PO HS PRN #14 tablet 04/10/18 [Rx] 3 Allergy/AdvReac Type Severity Reaction Status Date / Time codeine Allergy Itching Verified 07/06/17 15:27 Provider Date of admission: 04/08/18 11:14 Primary care physician: PCP NONE Psychiatry Exam - Constitutional Vitals: Temp Pulse Resp BP Pulse Ox 99.6 F 62 16 133/78 96 04/10/18 09:00 04/10/18 09:00 04/10/18 09:00 04/10/18 09:00 04/06/18 20:38 General appearance: age & developmentally appropriate, well-groomed, well- nourished - Musculoskeletal Gait: normal Station: relaxed Strength & Tone: normal for patient - Psychiatric Patient Orientation: Yes Person, Yes Time, Yes Place Level of alertness: Alert Behavior: calm, cooperative Psychomotor activity: Normal Eye Contact: Maintains Eye Contact Mood Description: Euthymic/stable Affect description: congruent with mood, full range Speech Volume: Normal Speech pattern: normal rate, normal rhythm, normal tone, fluent, spontaneous Language & Vocabulary: consistent with education Thought Process: Linear, Goal Oriented Thought Content: No Suicidal ideation, No Homicidal ideation, No Overt delusions Perceptual Disturbances: No Auditory hallucinations, No Visual hallucinations Attention Span Ability: Capable of Focused Attention Memory Description: Grossly Intact Patient Reliability: Reliable Historian Fund of knowledge: Yes abstraction ability, Yes aware of current events Intelligence Estimate: Average Judgment: Good Insight: Partial Hospital Course Hospital course: Ms. Guerrero is a 53 year old female was admitted from ED for suicidal thoughts and depression . She has h/o depression and anxiety and went off her medication for 1 year and moved and was unable to find psychiatrist and with marital stress and no medications caused her depression to increase and moods became depress and she was kicked out by her and was found by police outside her car and bought to ED. She has been using marijuana states my anxiety was so bad i took and i do not like it as it made me paranoid , she states will not use it as it makes me paranoid. she has chronic pain and h/o abusing pain medications and has been in rehab for several times , off pain meds for 3-4 years , she was also on suboxone in past. her pain is better with acetaminophen and motrin, she was started on cymbalta and baclofen , hydroxyzine and prn trazodone , medications helped her moods , she does not want to hurt herself as has grand kids and is looking forward to be with her parents and kids , she has gained insight and at present baseline. she is at present not suicidal , happy got help, and moods better and feels baseline, verbal , interactive. During course f hospitalization she attended group therapy and miliue and coping skills and showed improvement. Plan to discharge her to her parents with whom she is planning to live and is planning to work and will be given follow up appointment . Time spent discussing smoking cessation with patient: 3 to 10 minutes Does patient wish to continue nicotine replacement upon disc: No (has patches at home as trying on her own.) - Time Spent with Patient Total time spent providing and/or coordinating discharge services: Greater than 30 minutes Assessment and Plan - Patient/Caregiver Discharge Instructions Activity: resume usual activities as tolerated Diet: regular diet - Follow up Plan Follow up with: Carrie Almendarez [Outside] - 04/17/18 11:30 am (The above appointment is for mental health counselling. Please bring photo ID and insurance card. ) [facility] [Outside] - 05/15/18 8:30 am (The above appointment is with Jami Anand CNP for primary care and medication mgt. Please bring photo ID and insurance card and current medication list. Arrive at least 15 minutes before your scheduled appointment.) Overall status at discharge: patient is back to baseline Disposition: Home, Self-Care Quality - Multiple Antipsychotics Patient discharged on 2 or more antipsychotic medications: No Procedures - Procedures Procedures: Medication Management, Crisis Stabilization, Supportive Therapy, Group Therapy, Psychoeducational Therapy
== END 2018-04-10 12:40 | disposition home or self-care (01) | DRG 885 ==
LOC: EMEROO 16:43 → 1ANU 16:43 → SUATTDRO 04-07 01:47 → 1ANU 04-07 01:48
PROVIDERS: ADMIT General Practice; ATTEND Psychiatry & Neurology Psychiatry